=== PATIENT | male | born 2005 | race Caucasian/White ===

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

== ENCOUNTER → 2024-12-17 14:17 | Outpatient (BNVA) | payer OTHER, SELFPAY | PROVIDERS: PCP Family Medicine; Visit Provider Family Medicine | DX: Z00.00 Encounter for general adult medical examination without abnormal findings (principal); R10.9 Unspecified abdominal pain | CPT/HCPCS: 80053; 84443; 85025 ==